=== PATIENT | female | born 1950 | race Caucasian/White ===

== ENCOUNTER 2023-03-19 08:24 | Emergency (ER) | payer MEDICARE, SELFPAY ==
[2023-03-19 08:43] VITALS: BP 116/104; PULSE 68; RESP 16; TEMP 36.1; O2SAT 97
--- NOTE | 2023-03-19 09:01 | ED.SKABFB ---
HPI - Skin/Abscess/Foreign Bdy General Chief complaint: Wound/Laceration Stated complaint: Dog Bite Time Seen by Provider: 03/19/23 09:01 Source: patient, family, RN notes reviewed and old records reviewed Mode of arrival: ambulatory Limitations: no limitations History of Present Illness HPI narrative: 72 year old female who presents to express care with complaints of wound to her right dorsal forearm which occurred yesterday from a dog bite from her own dog. Patient replies that dog has puppies and gate was closed and dog tried to get over gait and got foot caught and when she was trying to help dog get unstuck dog bit her. Patient reports that she cleansed wound and applied Telfa dressing and tape.Patient reports that dog's vaccinations are up to date but she states that she needs Tetanus update. Patient has 3 cm diameter wound with inner tissue red with no drainage noted some surrounding redness around wound with no streaking. MD complaint: other (dog bite) Onset (ago): day(s) (yesterday) Tetanus up to date: no Severity scale (1-10): 6 Quality: burning and aching Treatments prior to arrival: bandages Related Data Home Medications Medication Instructions Recorded Confirmed omeprazole 40 mg capsule,delayed 40 mg PO DAILY 03/19/23 03/19/23 release Allergies Allergy/AdvReac Type Severity Reaction Status Date / Time tetracycline Allergy Unknown Itching Verified 03/19/23 09:02 Review of Systems Review of Systems: CONSTITUTIONAL: Denies fever, chills, or sweats. CARDIOVASCULAR: Denies chest pain, palpitations, or edema. RESPIRATORY: Denies cough or dyspnea. GASTROINTESTINAL: Denies abdominal pain, nausea, vomiting SKIN: Reports redness and swelling. with dog bite to her right forearm which occurred at 0500 yesterday morning Denies purulent drainage, pain beyond proportion MUSCULOSKELETAL: Denies myalgia. NEUROLOGIC: Denies headache, numbness All systems reviewed & are unremarkable except as noted in HPI and below PMFSH Past Medical History Medical History (Updated 03/19/23 @ 09:28 by Paris Calle NP) GERD (gastroesophageal reflux disease) Social History Social History (Updated 03/19/23 @ 09:41 by Paris Calle NP) Smoking status: Current every day smoker Tobacco type: cigarettes Alcohol intake: current Gender identity (if verbalized by the patient): Female Comments At time of signature, agree with nursing past medical, surgical, social and family history. There is no relevant family history pertinent to the presenting complaint Exam Narrative: GENERAL: Well-appearing, well-nourished, and in no acute distress. HEAD: Normocephalic, atraumatic. EYES: PERRLA and EOMI. ENT: Nares clear, no rhinorrhea or epistaxis. Mucous membranes moist.TM's normal with good light reflex, throat pink with no swelling NECK: Supple. no lymphadenopathy CHEST: Clear to auscultation. No respiratory distress. SAO2 97% on room air HEART: Regular rate and rhythm. No murmur heard. Normal peripheral pulses. ABDOMEN: Soft, nontender, nondistended, normal active bowel sounds. EXTREMITIES: Normal range of motion. No edema. SKIN: Warm, dry. Erythema, induration, tenderness, 3 cm total diameter with some surrounding area of redness No vesicles,or necrosis noted, no drainage noted. NEURO: No focal deficits. Alert and oriented x3. Course Course Emergency Course: Patient is aware of diagnosis, understands and agrees to treatment plan. Anticipatory guidance given. Patient agrees to follow-up as directed and is aware of reasons to seek care at the emergency department. Portions of this record may have been created with voice recognition software Level of Care: Express Care Visit Vital Signs Vital signs: Vital Signs Temperature 36.1 C L 03/19/23 08:43 Pulse Rate 68 03/19/23 08:43 Respiratory Rate 16 03/19/23 08:43 Blood Pressure 116/104 H 03/19/23 08:43 Pulse Oximetry 97 03/19/23 08:43 Oxygen Del
[2023-03-19 09:22] VITALS: BP 112/69
[2023-03-19] MEDS: TETANUS,DIPHTHERIA,AC PERTUSSIS ADULT (0.5 ML) BOOSTRIX IM (09:26)
== END 2023-03-19 09:30 | disposition home or self-care (01) ==
PROVIDERS: Emergency Provider Registered Nurse
DX: S51.851A Open bite of right forearm, initial encounter (principal); W54.0XXA Bitten by dog, initial encounter; Z23 Encounter for immunization; F17.210 Nicotine dependence, cigarettes, uncomplicated; K21.9 Gastro-esophageal reflux disease without esophagitis
CPT/HCPCS: 90471; 90715; 99213; G0463

== ENCOUNTER 2025-07-17 10:03 | Outpatient (CLI) | payer MEDICARE, SELFPAY ==
--- NOTE | ~2025-07-17 | XR_ITS ---
MODIFIED ESOPHAGRAM HISTORY: Dysphagia. TECHNIQUE: Modified barium esophagram was performed on 07/17/2025. I administered fluoroscopy and performed the exam with speech pathologist. Patient was seated for lateral fluoroscopic imaging for ingestion of thin liquids, pudding, solids and quantified amounts, followed by thin liquids in uncontrolled amounts. This was recorded on tape. A single fluoroscopic spot image was also recorded. The DAP for this procedure was 0.763 Gycm2. The amount of fluoroscopy time used during this procedure was 2.2 minutes. FINDINGS: Oral stage: Adequate function. Pharyngeal stage: Adequate function. Cervical/esophageal stage: Adequate function. IMPRESSION: Patient tolerated regular consistency oral feedings in the upright position. Please correlate with speech pathologist findings and specific feeding recommendations. Reviewed, dictated and finalized at location A. IMPRESSION: Patient tolerated regular consistency oral feedings in the upright position. Please correlate with speech pathologist findings and specific feedi ng recommendations.
--- OUTSIDE RECORDS SUMMARY | 2025-07-17 10:50 | XMS_ITS | Clinical Summary ---
Author Organization [facility] Address [address] [place] [address] Care Team Providers Care Screen Printing Cloth Spreader Name Role Phone Nolan Ling MD Primary Care Provider [phone] Source Comments [facility] and Associated Physician Practices is amultiple site organization consisting of ambulatory clinics and hospital sitesin [place], [place], [place] and [place]. This disclosure is being madepursuant to the Care Everywhere program and may not contain all information available regarding this patient. Last updated 18.[facility] [employer] Allergies Active Allergy Reactions Criticality Noted Date Comments Tetracycline Nausea and/or Vomiting 04/08/2018 Medications * Be aware that medications may not be up to date on this document. Alwaysverify current medications with the patient. 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 Gender Identity Female 02/05/2021 6:45 AM CDT Sexual Orientation Choose not to disclose 2020 6:45 AM CDT Last Filed Vital Signs Vital Sign Reading Time Taken Comments Blood Pressure 122/68 02/05/2021 10:22 AM CDT Pulse 83 02/05/2021 10:22 AM CDT Temperature 36.8 C (98.2 F) 02/05/2021 10:22 AM CDT Respiratory Rate 18 02/05/2021 10:22 AM CDT Oxygen Saturation 98% 02/05/2021 10:22 AM CDT Inhaled Oxygen Concentration - - Weight 52.2 kg (115 lb) 02/05/2021 10:22 AM CDT Height 152.4 cm (5') 02/05/2021 10:22 AM CDT Body Mass Index 22.46 02/05/2021 10:22 AM CDT Plan of Treatment Health Maintenance Due Date Last Done Comments BONE DENSITY TESTING 1950 HEPATITIS C SCREENING 03/23/1966 DTAP/TDAP/TD VACCINES (1 - Tdap) 1967 PNEUMOCOCCAL VACCINE 50+ (1 of 2 - PCV) 1967 ZOSTER VACCINE (1 of 2) 1998 Respiratory Syncytial Virus (RSV) Vaccine Pt: or over 60 yrs (1 - 1-dose 75+ series) 2023 DEPRESSION SCREENING 11/05/2024 COVID-19 VACCINE (1 - 2023-2 5 season) 2025 INFLUENZA VACCINE (#1) 2025 08/28/2018 HEPATITIS B VACCINE Aged Out No longe r eligible based on patient's age to complete this topic HIB VACCINE Aged Out No longer eligi ble based on patient's age to complete this topic HPV VACCINE Aged Out No longer eligi ble based on patient's age to complete this topic MENINGOCOCCAL (Group B) VACC INE SHARED DECISION-MAKING Aged Out No longer eligibl e based on patient's age to complete this topic MENINGOCOCCAL GROUPS A/C/Y/W VACCINE Aged Out No longer eligible b ased on patient's age to complete this topic Insurance MEDICARE MEDICARE [facility] Care Teams Screen Printing Cloth Spreader Relationship Specialty Start Date End Date Nolan Ling MD [address] [place] [address] PCP - General Internal Medicine 04/08/18
--- OUTSIDE RECORDS SUMMARY | 2025-07-17 10:50 | XMS_ITS | Encounter Summary ---
Author Organization [facility] Address 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
--- OUTSIDE RECORDS SUMMARY | 2025-07-17 10:50 | XMS_ITS | Clinical Summary ---
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
--- OUTSIDE RECORDS SUMMARY | 2025-07-17 10:50 | XMS_ITS | Patient Health Record ---
Author Organization [facility] Address [address] [place] [address] Care Team Providers Care Stripping And Booking Machine Operator Name Role Phone Nolan Ling Primary Care Provider Nolan Ling MD Unavailable Unavailable Allergies Allergen (clinical drug ingredient) Drug/Non Drug Allergy documented on EMR Reaction Allergy Type Onset Date Status tetracycline Tetracycline HCl Notes: nausea Drug Allergy Active Results Component Value Reference Range Notes CBC without Diff Reviewed date:08/28/2024 10:03:45 PM Interpretation:Abnormal (no f/u needed) Performing Lab:[facility] , [facility]. [facility] [id number] Notes/Report: WBC 7.4 3.8-9.9 K/cumm Hgb 13.8 11.9-15.5 g/dL Hct 41.4 35.6-45.5 % Platelet Ct 290 150-400 K/cumm MPV 10.9 9.1-12.3 fL RBC 4.36 3.90-5.20 M/cumm MCV 95.0 81.3-96.4 fL MCH 31.7 27.1-33.3 pg MCHC 33.3 32.3-35.7 g/dL RDW CV 15.1 11.1-14.9 % RDW SD 53.0 35.7-48.1 fL NRBC Abs Auto 0.00 0.00-0.01 K/cumm Comprehensive metabolic pane l (CMP) Reviewed date:08/28/2024 10:03:45 PM Interpretation:Abnormal (no f/u needed) Performing Lab:[facility] , [address] [place] [address]. [facility] [address] Notes/Report: Sodium 132 135-145 mmol/L Plasma Potassium 4.8 3.3-4.9 mmol/L Chloride 95 97-110 mmol/L Total CO2 25 22-32 mmol/L Anion Gap 12 2-15 mmol/L BUN 14 6-25 mg/dL Creatinine 0.86 0.60-1.10 mg/dL Glucose 76 70-199 mg/dL Interpretive Data Fasting glucose >/= 126 mg/dl is diagnostic for diabetes. Fasting is defined as no caloric intake for at least 8 hours. Fasting glucose between 100 mg/dl to 125 mg/dl is diagnostic of prediabetes. In a patient with classic symptoms of hyperglycemia or hyperglycemic crisis, a random glucose >/= 200 mg/dl is diagnostic for diabetes. In the absence of unequivocal hyperglycemia, results should be confirmed by repeat testing. The classification and Diagnosis of Diabetes Diabetes Care 2021; 46: S19-S40. Current interpretive data was last revised 2022. Total Calcium 9.7 8.5-10.3 mg/dL Total Bilirubin 0.3 0.1-1.2 mg/dL Plasma Total Protein 7.1 6.5-8.5 g/dL Albumin 4.1 3.5-5.0 g/dL Alkaline Phosphatase 126 40-130 Units/L ALT 11 7-45 Units/L AST 29 10-45 Units/L TSH Reviewed date:08/28/2024 10:03:45 PM Interpretation:Normal Performing Lab:[facility] , [address] [place] [address]. [facility] [address] Notes/Report: TSH 2.60 0.30-4.20 mcIUnit/mL QTB Gold Reviewed date:09/02/2024 09:58:39 PM Interpretation:Normal Performing Lab:[facility] , [address] [place] [address]. [facility] [address] Notes/Report: QuantiFERON TB Gold Negative Negative No interferon-gamma response to M. tuberculosis antigens was detected. Latent infection with M. tuberculosis is unlikely. A single negative result does not exclude infection with M. tuberculosis. In patients at high risk for M.tuberculosis infection, a second test should be considered in accordance with the 2017 ATS/IDSA/CDC Clinical Practice Guidelines for Diagnosis of Tuberculosis in Adults and Children [Jeni BUTLER et. al. Clin. Infect. Dis. 2017;64(2):111-115]. The reference range for the 'TB1 Ag minus Nil Result' and 'TB2 Ag minus Nil Result' is an Interferon-gamma level <0.35 IU/mL. TB-Nil 0.00 TB2-Nil 0.00 Mitogen-Nil 4.02 NIL 0.01 Test Performed by: [facility] [address] [place] [address] Umbrella Tipper: Edgardo Phillips Ph.D.; CLIA# [id number] UA, reflex Micro to Culture Reviewed date:08/28/2024 10:03:45 PM Interpretation:Normal Performing Lab:[facility] , [address] [place] [address]. [facility] [address] Notes/Report: Color, Ur Yellow Yellow Clarity, Ur Clear Clear Spec Grav, Ur 1.016 1.003-1.030 pH, Ur 6.5 Interpretive Data ?Urine pH is affected by diet, medications, systemic acid-base disturbances, and renal tubular function. pH may affect urinary stone formation. For example, urine pH below 6.0 may help reduce the tendency for calcium phosphate stones and pH greater than 6.0 may reduce the tendency for uric acid stone formation. Source: [facility] Current Interpretive Data was last revised on 2017 Protein, Ur Ql Negative Negative Glucose, Ur Ql Negative Negative Ketones, Ur Negative Negative Bilirubin, Ur Negative Negative Blood, Ur Negative Negative Urobilinogen, Ur <2.0 <2.0 mg/dL Nitrite, Ur Negative Negative Leukocyte Esterase, Ur Negative Negative UA reflex comment See Below Reflex con ditions for microscopic UA and culture not met. eGFR Reviewed date:08/28/2024 10:03:45 PM Interpretation:Normal Performing Lab:[facility] , [address] [place] [address]. [facility] [id number] Notes/Report: eGFR 70 >=60 mL/min/1.73 m2 Interpretive Data Reference Interval Normal >/= 90 mL/min/1.73m2 Mildly decreased* 60 - 89 mL/min/1.73m2 Mildly to moderately decreased 45 - 59 mL/min/1.73m2 Moderately to severely decreased 30 - 44 mL/min/1.73m2 Severely decreased 15 - 29 mL/min/1.73m2 Kidney Failure < 15 mL/min/1.73m2 *Relative to young adult level Estimated glomerular filtration rate is determined by the 2020 CKD-EPI equation recommended by the National Kidney Foundation (A Unifying Approach to GFR Estimation: Recommendations of the NKF-ASK Task Force on Reassessing the Inclusion of Race in Diagnosing Kidney Disease, JASN 2020). The CKD-EPI equation should not be used for patients with unstable renal function and has not been validated in children and those over 70. Current interpretive data was last reviewed 2021. Reason For Referral No Information Medications Medication SIG (Take, Route, Frequency, Duration) Notes Start Date End Date Status Sertraline HCl 100 MG TAKE 1 TABLET ONCE DAILY; Duration: 90 Active Arnuity Ellipta 100 MCG/ACT 1 puff Inhalation Once a day; Duration: 90 days 08/05/2025 Active Immunizations Vaccine Route Administration Date Status Comme nts Influenza high dose > 65 [facility] IM Intramuscular 09/08/2016 Administered Influenza high dose > 65 [facility] IM Intramuscular 11/08/2017 Administered Influenza high dose > 65 [facility] Unknown 09/03/2018 Administered recived high dose flu in at [facility] on 08/28/2018 0.5 ml l/a exp 03/04/2019 Influenza high dose > 65 [facility] IM Intramuscular 08/28/2019 Administered Influenza high dose > 65 [facility] IM Intramuscular 08/13/2020 Administered Influenza high dose > 65 [facility] IM Intramuscular 08/19/2021 Administered Influenza high dose > 65 [facility] IM Intramuscular 08/21/2022 Administered Influenza high dose > 65 [facility] IM Intramuscular 08/28/2024 Administered Infuenza, trivalent, recombinant, preservative free IM Intramuscular 09/18/2014 Administered Pneumococcal conjugate PCV 13 IM Intramuscular 09/08/2016 Administered Social History Tobacco Use: Social History Observation Description Date Details (start date - stop date) Current Smoker NA - NA Tobacco Control (Standard) Question Answer Notes Tobacco use: Current smoker How often do you smoke cigarettes? Every day How many cigarettes a day do you smoke? 11-20 How soon after you wake up do you smoke your fir st cigarette? 6-30 minutes Are you interested in quitting? Not ready to darek t Problems Problem Type SNOMED Code ICD Code Onset Dates Problem Status W/U Status Risk Notes Problem Gastroesophageal ref lux disease (disorder) (436253537) Chronic GERD (K21.9) Active confirmed Problem Computed tomography result abnormal (365951994) Abnormal CT scan (R93.89) Active confirmed Problem Vitamin D deficiency (37813837) Vitamin D deficiency, unspecified (E55.9) Active confirmed Problem Anxiety disorder (265635188) Anxiety disorder, unspecified (F41.9) Active confirmed Problem Chronic obstructive pulmonary disease (65622454) Chronic obstructive pulmonary disease, unspecified (J44.9) Active confirmed Problem Dermatitis (941316281) Dermatiti s, unspecified (L30.9) 011 Active confirmed Problem Plantar fascial fibromatosis (28773740) Plantar fascial fibromatosis (M72.2) Active confirmed Problem Disorder of bone (00460074) Other specified disorders of bone density and structure, unspecified site (M85.80) Active confirmed Problem Tobacco use (849725804) Tobacco use (Z72.0) Active confirmed Problem Pure hypercholesterolemia (145694388) Pure hypercholester olemia, unspecified (E78.00) Active confirmed Vital Signs Heart Rate 70 /min 02/06/2025 Temperature 97.6 degrees Fahrenheit 02/06/2025 Blood pressure diastolic 62 mm Hg 02/06/2025 Oximetry 94 % 02/06/2025 Height-cm 144.78 cm 02/06/2025 Weight-kg 48.26 kg 02/06/2025 Height 57 in 02/06/2025 Blood pressure systolic 120 mm Hg 02/06/2025 Weight 106.4 lbs 02/06/2025 BMI 23.02 kg/m2 02/06/2025 Encounters Encounter Location Date Provider Diagnosis [facility] [address] [place] [address] 08/28/2024 Nolan Ling Plantar fascial fibromatosis M72.2 ; Other specified disorders of bone density and structure, unspecified site M85.80 ; Dermatitis, unspecified L30.9 ; Vitamin D deficiency, unspecified E55.9 ; Anxiety disorder, unspecified F41.9 ; Chronic obstructive pulmonary disease, unspecified J44.9 ; Pure hypercholesterolemia, unspecified E78.00 ; Unintentional weight loss R63.4 ; Abnormal CT scan, chest R93.89 and Encounter for immunization Z23 [facility] [address] [place] [address] 02/06/2025 Nolan Ling Vitamin D deficiency , unspecified E55.9 ; Anxiety disorder, unspecified F41.9 ; Chronic obstructive pulmonary disease, unspecified J44.9 and Other specified disorders of bone density and structure, unspecified site M85.80 [facility] [address] [place] [address] 08/28[facility]2024 [facility] [address] [place] [address] 12/08/[address] scan R93 .89 [facility] [address] [place] [address] 07/03/2025 [facility] [address] [place] [address] 11/18/2024 [facility] [address] [place] [address] 01/29/2025 Nolan Ling [facility] [address] [place] [address] 07/02/2025 Nolan Ling Assessments Encounter Date Diagnosis (ICD Code) Assessment Notes Treatment Notes Treatment Clinical Notes Section Notes 08/28/2024 Plantar fascial fibromatosis (ICD-10 - M72.2) 08/28/2024 Other specified disorders of bone density and structure, unspecified site (ICD-10 - M85.80) 12/08/[address] scan (ICD-10 - R93.89) 02/06/2025 Vitamin D deficiency, unspecified (ICD-10 - E55.9) 02/06/2025 Anxiety disorder, unspecified (ICD-10 - F41.9) 02/06/2025 Chronic obstructive pulmonary disease, unspecified (ICD-10 - J44.9) Doing well on current therapy, continue present regimen. 08/28/2024 Dermatitis, unspecified (ICD-10 - L30.9) 02/06/2025 Other specified disorders of bone density and structure, unspecified site (ICD-10 - M85.80) 08/28/2024 Vitamin D deficiency, unspecified (ICD-10 - E55.9) 08/28/2024 Anxiety disorder, unspecified (ICD-10 - F41.9) 08/28/2024 Chronic obstructive pulmonary disease, unspecified (ICD-10 - J44.9) 08/28/2024 Pure hypercholesterolem ia, unspecified (ICD-10 - E78.00) 08/28/2024 Unintentional weight loss (ICD-10 - R63.4) 08/28/[address] scan, chest (ICD-10 - R93.89) 08/28/2024 Encounter for immunization (ICD-10 - Z23) 02/06/2025 Other filled out form for med clearance for conscious sedation Plan Of Treatment Pending Test Test Name Order Date Vitamin D, 25-Hydroxy 03/07/2024 Lipid Panel 03/07/2024 CMP - Comp. Metabolic Panel (14) 024 Bone Density 02/06/2025 CT Chest with Contrast 08/28/2024 Quantiferon Gold 08/28/2024 *UA with reflex to culture 08/28/2024 CT Lung Cancer Screening 12/08/2024 Next Appt Details Provider Name:Nolan Omar correa, 08/17/2025 08:00:00 AM, [address], [place], [address], Insurance Providers Payer Name Payer Address Payer Phone Subscriber Number Group Number Insured Name Patient Relationship to Insured Coverage Start Date Coverage End Date [employer] Medicare Hmo [address] [place] [address] [phone] [id number] Celine Ahmadi Self - patient is the insured [facility] [address] [place] [address] [id number] PLAN G Celine Ahmadi Self - patient is the insured 9 [employer] Ppo [address] [place] [phone] [id number] Celine Ahmadi Self - patient is the insured 7 [employer] [address] URIEL Mcintosh [id number] [phone] [id number] Celine Ahmadi Self - patient is the insured 4 [facility] [address] [place] [address] [phone] [id number] Celine Ahmadi Self - patient is the insured Medical (General) History Medical History History ICD Code *Last Dexa: 08/18/19: spine -1.0, hip -2 .0, fem neck -2.8 07/24/13: spine -0.6, hip -0.9, fem neck -2.5 04/27/11: spine -1.1, hip -1.6; *PFTs: 05/01/11: air trapping , mild obstruction, mild decreased diffusion, FVC-88%, FEV1--84%, FEV1/FVC--77%, RV 140%, corrected DLCO--76%; Anxiety Disorder; Bunion; Chronic Obstructive Pulmonar y Disease: Using Pulmicort and stable symptoms. ; Eczema, Date of Onset: 04/27/2011; Hypercholesterolemia; Microscopic hematuria, Date of Onset: ; Osteopenia; Plantar fasciitis; Subarachnoid hemorrhage: left with signi ficant anxiety, Date of Onset: 2000; Tobacco abuse; Vitamin D Deficiency; Surgical History Surgery Date(Month/Year) Appendectomy; 2010-04-28 Ovarian cyst removal, Date of Procedure: 1974; 2010-04-28 Tonsillectomy; 2010-04-28 Bunion surgery; 2010-04-28 Hand surgery, left: trigger finger thumb , middle finger; 2010-04-28 Hand surgery, right: trigger finger thum b, middle finger; 2010-04-28
--- NOTE | 2025-07-17 11:24 | REHSTMBS ---
Assessment and note entered by Nilda Ribeiro, ENAMEL SPRAYER Modified Barium Swallow Evaluation Feeding Type Recommended Oral Food Consistency Regular, Level 7 Liquid Consistency Thin (0) Treatment Recommendations Bolus Control Exercise ST Clinical Summary The patient is a 75 year old female referred for a MBS Study following an outpatient swallow evaluation on 07/16/25. The patient was noted to have coughing episodes following drink ns of thin liquid. The patient reports experiencing more swallowing difficulties over the past 3-4 months with pills/solids and drinks of liquid. The patient was positioned in a lateral view and presented the following consistencies: 5cc/tsp thin liquid barium, cup trials thin liquid barium, pudding mixed with barium paste, and cracker coated with barium paste. Oral Stage: Oral preparation and transit was viewed to be timely for pudding and cracker consistency. The patient utilized small controlled bolus amounts /piecemeal deglutition with thin liquid to reduce aspiration risk. Pharyngeal Stage: When presented all the above consistencies swallow initiation was completed in a timely manner without viewed aspiration or penetration. No residual was viewed to remain in the valleculae or pyriform sinus. Recommend consideration of a barium swallow given patients reported symptoms. Thank you for the consult. Recommend Bolus control exercises to be provided by patient's outpatient speech therapist.
== END 2025-07-17 10:04 | disposition home or self-care (01) ==
LOC: ANHIMG 10:06
PROVIDERS: Visit Provider Otolaryngology
DX: R13.19 Other dysphagia (principal)
CPT/HCPCS: 74230; 92611

== ENCOUNTER 2025-07-27 09:00 | Outpatient (RCR) | payer MEDICARE, SELFPAY ==
--- NOTE | 2025-07-17 11:50 | STOPEVAL1 ---
Assessment and note entered by Nilda Ribeiro, FRAME CHANGER Reported Pain Level Pain Score 0: Self Report Assessment ST Clinical Summary The patient is a 75 year old female referred by her physician for an outpatient speech evaluation and MBS Study due to a history of a sticking sensation in her throat that has progressively become worse over the past 3-4 months. She reports difficulty with pills and solids and coughing frequently with drinks and ice cream. The patient was assessed with the following consistencies at the outpatient center: 5cc thin liquid, cup trials thin liquid, pudding, and cracker/solids. Oral Stage: The patient demonstrated a timely oral preparation and transit across consistencies. When completing trials of thin liquid 5cc swallow appeared timely without clinical signs of aspiration. However, with small cup trials of thin liquid the patient had an immediate cough response following her swallow. When instructed to take small controlled drinks and utilize a chin tuck posture the patient was not viewed to have additional coughing episodes with thin liquid. When given trials of pudding and cracker consistency the patient did report a feeling of a sticking sensation and utilized an effortful swallow but no outward clinical signs of aspiration were noted. A MBS was recommended and scheduled for 07/17/25. Results of MBS completed 07/17/25 are as follows. The patient was positioned in a lateral view and presented the following consistencies: 5cc/tsp thin liquid barium, cup trials thin liquid barium, pudding mixed with barium paste, and cracker coated with barium paste. Oral Stage: Oral preparation and transit was viewed to be timely for pudding and cracker consistency. The patient utilized small controlled bolus amounts/piecemeal deglutition with thin liquids to reduce aspiration risk. Pharyngeal Stage: When presented all the above consistencies swallow initiation was completed in a timely manner without viewed aspiration or penetration. No residual was viewed to remain in the valleculae or pyriform sinus. Recommend consideration of a barium swallow given patients reported symptoms. Recommend Speech services 1x week x 3 visits to provide instruction with bolus control and a HEP Plan of Care ST Services Indicated Yes Treatment Frequency and 1x a week x 10 visits for dysphagia Duration These treatments will address the objective and functional deficits as defined above. The patient will be advanced safely and appropriately in order for the patient to progress towards his/her prior level of function. Additional exercises will be introduced and as well as a comprehensive home exercise program upon discharge, if needed, ?to ensure carryover of functional gains achieved in the clinic. This treatment plan has been reviewed and agreement upon by the patient.
--- NOTE | 2025-07-17 11:51 | OPREHPOC ---
Outpatient Therapy Plan of Care This is a Multidisciplinary Plan of Care that may contain components documented by all disciplines (PT, OT, and ST.) ST Problem 1 ST Problem #[address] Goal 1 Goal / Goal Update The patient will participate in home programming to improve carry over/generalization of skills to the home environment. Target Visit [address] Problem #[address] Goal 1 Goal / Goal Update Dysphagia: 1. The patient will complete a HEP with 90% compliance to include: 2. The patient will utilize compensatory dysphagia techniques to include: bolus control techniques and chin-tuck with liquids with 85% accuracy and reduced clinical signs of aspiration. 3. The patient will demonstrate and report reduced clinical signs of aspiration with liquids and solids 90% of time with PO intake.
--- NOTE | 2025-07-27 09:44 | STOPDC ---
Assessment and note entered by Nilda Ribeiro [employer] Evaluation Information Assessment Status Discharge Reported Pain Level Pain Score 0: Self Report Assessment ST Clinical Summary Initial Evaluation: The patient is a 75 year old female referred by her physician for an outpatient speech evaluation and MBS Study due to a history of a sticking sensation in her throat that has progressively become worse over the past 3-4 months. She reports difficulty with pills and solids and coughing frequently with drinks and ice cream. The patient was assessed with the following consistencies at the outpatient center: 5cc thin liquid, cup trials thin liquid, pudding, and cracker/solids. Oral Stage: The patient demonstrated a timely oral preparation and transit across consistencies. When completing trials of thin liquid 5cc swallow appeared timely without clinical signs of aspiration. However, with small cup trials pf thin liquid the patient had an immediate cough response following her swallow. When instructed to take small controlled drinks and utilize a chin tuck posture the patient was not viewed to have additional coughing episodes with thin liquid. When given trials of pudding and cracker consistency the patient did report a feeling of a sticking sensation and utilized an effortful swallow but no outward clinical signs of aspiration were noted. A MBS was recommended and scheduled for 07/17/25. Results of MBS completed 07/17/25 are as follows. The patient was positioned in a lateral view and presented the following consistencies: 5cc/tsp thin liquid barium, cup trials thin liquid barium, pudding mixed with barium paste, and cracker coated with barium paste. Oral Stage: Oral preparation and transit was viewed to be timely for pudding and cracker consistency. The patient utilized small controlled bolus amounts/piecemeal deglutition with thin liquids to reduce aspiration risk. Pharyngeal Stage: When presented all the above consistencies swallow initiation was completed in a timely manner without viewed aspiration or penetration. No residual was viewed to remain in the valleculae or pyriform sinus. Recommend consideration of a barium swallow given patients reported symptoms. Recommend Speech services 1x week x 3 visits to provide instruction with bolus control and a HEP 07/27/25: Discharge Summary with HEP given. The patient was seen following MBS Study. MBS completed with no noted aspiration or penetration. Did note some difficulty with oral timing of the swallow due to small controlled piecemeal deglutition noted in MBS. The patient was provided this date with written exercises to include tongue base retraction, chin tuck resistance, and bolus control. The patient returned demonstration with each with good independence. Stated she has noticed reduced coughing with chin tuck use with solids. Still reports some sticking sensation which maybe related to reflux. The patient previously took omeprazole but discontinued use due to seeing no impact or change. May consider another reflux medication. Patient discharged this date with a HEP. thank you for the consult Plan of Care Services Indicated No
== END 2025-07-27 11:30 | disposition home or self-care (01) ==
LOC: ANHST 09:00
PROVIDERS: Visit Provider Otolaryngology
DX: R13.19 Other dysphagia (principal)
CPT/HCPCS: 92507; 92526; 92610